=== PATIENT | female | born 1970 | race Caucasian/White ===

== ENCOUNTER 2018-09-13 07:28 | Emergency (ER) | payer OTHER, SELFPAY ==
[~2018-09-13 07:28] MED LIST: ISOVUE-370 76%-LOCM 1 ML ONE
[2018-09-13] MEDS ORDERED: Ondansetron PF 4 MG/2 ML Vial ONE (08:12)
[2018-09-13 08:17] LABS: #Basophils 0.1 thou/uL (0.0-0.2); #Eosinphils 0.1 thou/uL (0.0-0.7); #Lymphocytes 1.4 thou/uL (1.20-3.40); #Monocytes 0.3 thou/uL (0.11-0.59); #Neutrophils 3.1 thou/uL (1.40-6.50); %Basophils 1.2 % (0.0-1.0); %Eosinophils 1.2 % (0.0-10.0); %Lymphocytes 28.3 % (21.0-51.0); %Neutrophils 63.3 % (42.0-75.0); Hemoglobin 13.7 g/dL (12.0-16.0); Mean Corpuscular HGB CONC 34.1 g/dL (32.0-36.0); Mean Corpuscular Hemoglobin 31.5 pg (27.0-31.0); Mean Corpuscular Volume 92.2 fL (78.0-98.0); Platelet Count 162 thou/uL (130-400); RBC Distribution Width 12.6 % (11.5-14.5); Red Blood Cell (RBC) Count 4.35 mill/uL (4.20-5.40); White Blood Cell (WBC) Count 4.8 thou/uL (4.8-10.8)
--- NOTE | 2018-09-13 08:32 | CT ---
CT ABDOMEN PELVIS WITH IV CONTRAST: HISTORY: Diarrhea, incontinence. Endometriosis with cyst removal COMPARISON: 07/28/2011 FINDINGS: There are mild patchy groundglass infiltrates in the left lung base. The patient is postcholecystecto my. Mild prominence of the biliary ducts is due to reservoir effect. The liver, spleen, pancreas, adrenal glands and kidneys are normal. No free air, free fluid or lymphadenopathy seen in the abdomen or pelvis. Uterus is present. There is a 2.2 cm left adnexal cyst. There are vascular calcifications without evidence of aneurysmal dilatation of the abdominal aorta. A small hiatal hernia is present. The small bowel loops are not abnormally dilated. There is fluid in the loops of small and large bowel. Mild degenerative changes are present in the spine. IMPRESSION: 2.2 cm left adnexal cyst. Small hiatal hernia.
[2018-09-13 08:52] LABS: ALT (SGPT) 67 U/L (8-55); AST (SGOT) 133 U/L (5-34); Albumin 4.9 g/dL (3.5-5.0); Alkaline Phosphatase 71 U/L (40-150); Anion Gap 21 mmol/L (10-20); BUN (Urea Nitrogen) 9 mg/dL (7.0-18.7); Bilirubin, Total 0.8 mg/dL (0.2-1.2); CK (CPK) 112 U/L (29-168); Calc. Creatinine Clearance 0 mL/min (70-130); Carbon Dioxide 24 mmol/L (22-29); Chloride 104 mmol/L (98-107); Estimated GFR-MDRD 63; Globulin 2.7 g/dL (2.4-3.5); Glucose 145 mg/dL (70-105); Lipase 45 U/L (8-78); Magnesium 3.3 mg/dL (1.6-2.6); Potassium 4.7 mmol/L (3.5-5.1); Protein, Total 7.6 g/dL (6.0-8.3); Sodium 144 mmol/L (136-145)
== END 2018-09-13 11:37 | disposition home or self-care (01) ==
LOC: ERS 07:28
DX: R19.7 Diarrhea, unspecified (principal); R11.0 Nausea; F41.9 Anxiety disorder, unspecified; F32.9 Major depressive disorder, single episode, unspecified; Z79.899 Other long term (current) drug therapy
CPT/HCPCS: 74177; 80053; 82550; 83690; 83735; 84484; 85025; 93005; 96361; 96374; J2405